=== PATIENT | male | born 1970 | race Caucasian/White ===

== ENCOUNTER 2025-01-08 05:35 | Emergency (ER) | payer BC, OTHER, SELFPAY ==
--- OUTSIDE RECORDS SUMMARY | 2023-04-25 18:00 | XMS_ITS | Continuity of Care Document ---
Author Organization [facility] Address [address] [place] [address] Phone Care Team Providers Care Art Dealer Name Role Phone Gregg ROMERO MD, Dom Unavailable Unavailabl e Procedures Procedure Date LESION REMOVAL COLONOSCOPY Advance Directives Directive Yes / No Effective Date File Name No Information Encounters Encounter Description Practice Location Reason(s) For Visit Diagnoses Date Provider Providers Copied on Encounter [facility] , [address] [place] [address], [id number], [place] tel:[phone] [facility] No Information Gregg ROMERO Dom. [address], [address], [place], [id number] , [place]. tel:[phone] Referring Provider: Az Enamorado, [address], [place], [address]. tel:[phone] Family History Family Member Type Diagnosis Age At Onset No Information Payers Payer name Insurance type Covered democrat ID Authoriza tion(s) Stendal Cross [facility] Out of State [id number] [facility] [id number] Social History Type Description Quantity Date Captured Comments Sex Male Smoking Status No Information Chief Complaint And Reason For Visit No Information Reason For Referral Reason For Referral No Information History Of Present Illness Encounter Date Complaint History Of Prese nt Illness No Information Functional Status Date Functional Assessmen t No Information Instructions Date Instruction Additional Infor mation No Information Assessments Type Assessment Date No Information Patient Care Teams Name Effective Dates (start - stop) Status Members No Information
--- OUTSIDE RECORDS SUMMARY | 2025-01-08 05:39 | XMS_ITS | Clinical Summary ---
Author Organization [facility] Address [address] [place] [address] Care Team Providers Care Lithoplate Maker Name Role Phone Az Enamorado MD Primary Care Provider [phone] Allergies Active Allergy Reactions Criticality Noted Date Comments Penicillin G Medications ePINEPHrine (EPIPEN 2-MICHELLE) 0.3 mg/0.3 mL (1:1,000) injectionIndicat ions:Allergy to bee sting Inject 0.3 mLs into the muscle as needed for Anaphylaxis . 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 Actinic keratosis 09/14/2012 Peptic Esophagitis 03/14/2008 Overview (12/27/2010): Social History Tobacco Use Types Packs/Day Years Used Date Smoking Tobacco: Never Alcohol Use Standard Drinks/Week Comments Not Asked 0 (1 standard drink = 0.6 oz pur e alcohol) Sex and Gender Information Value Date Recorded Sex Assigned at Male 09/28/2022 12:56 PDT Legal Sex Male 12:30 PDT Gender Identity Male 09/28/2022 12:56 PDT Sexual Orientation Straight 09/28/2022 12 :56 PDT Last Filed Vital Signs Vital Sign Reading Time Taken Comments Blood Pressure 106/74 09/13/2012 1704 PDT Pulse 74 02/02/2011 1602 PST Temperature 36.8 C (98.2 F) 09/13/2012 1704 PDT Respiratory Rate 18 02/02/2011 1602 PST Oxygen Saturation - - Inhaled Oxygen Concentration - - Weight 112 kg (247 lb) 09/13/2012 1704 PDT Height 182.9 cm (6') 09/13/2012 1704 PDT Body Mass Index 33.5 09/13/2012 1704 PDT Plan of Treatment Health Maintenance Due Date Last Done Comments HIV Screening 1970 Varicella Vaccines (1 of 2 - 13+ 2-dose series) 1981 DTaP/Tdap/Td Vaccines (1 - Tdap) 06/07/1987 Hepatitis B Vaccines (1 of 3 - 19+ 3-dose series) 06/07/1987 COLOGUARD 2013 FOBT/FOBI 2013 SIGMOIDOSCOPY 2013 Pneumococcal Vaccines: 50+ Y ears (1 of 1 - PCV) 2018 Zoster Vaccines (Shingrix) 5 0+ (1 of 2) 2018 COVID-19 Vaccine (4 - 2024- season) 2024 12/11/2020, 05/09/2020, 04/11/2020 Influenza Vaccine (#1) 2024 12/28/2018 COLONOSCOPY 04/25/2028 04/26/2023, 04/26/2023 Colorectal Cancer Screening 04/25/2028 Procedures Procedure Name Priority Date/Time Associated Diagnosis Comments COLONOSCOPY Routine 04/26/2023 Special screening for malignant neoplasms, colon from Last 3 Months or Most Recently Relevant to Health Maintenance Results * Colonoscopy (04/26/2023) Dom Escobedo MD PROCEDURE/MINOR SURGICAL ORDER HAILEY Final Result from Last 3 Months or Most Recently Relevant to Health Maintenance Insurance [facility] BLUE CROSS BLUE [facility] Care Teams Lithoplate Maker Relationship Specialty Start Date End Date Az Enamorado MD [address] [address] PCP - General Internal Medicine 02/23/23
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
--- OUTSIDE RECORDS SUMMARY | 2025-01-08 05:39 | XMS_ITS | Clinical Summary ---
Author Organization [facility] Address [address] [place] [address] Care Team Providers Care Chemistry Department Chair Name Role Phone Unavailable Primary Care Provider Unavailabl e Social History Tobacco Use Types Packs/Day Years Used Date Smoking Tobacco: Never Assessed Sex and Gender Information Value Date Recorded Sex Assigned at Not on file Legal Sex Male 8:54 AM EST Gender Identity Not on file Sexual Orientation Not on file Plan of Treatment Health Maintenance Due Date Last Done Comments DTaP,Tdap,and Td Vaccines (1 - Tdap) 06/07/1987 Hepatitis B Vaccines (1 of 3 - 19+ 3-dose series) 06/07/1987 Pneumococcal Vaccine: 50+ Ye ars (1 of 1 - PCV) 2018 Zoster Vaccines (1 of 2) 2018 Depression Screening 02/16/2024 COVID-19 Vaccine (1 - 2024-2 6 season) 2024 Influenza Vaccine (#1) 2024 RSV Immunization Adult Patie nts (1 - 1-dose 75+ series) 06/07/2043 HIB Vaccines Aged Out No longer eligi ble based on patient's age to complete this topic HPV Vaccines Aged Out No longer eligi ble based on patient's age to complete this topic Hepatitis A Vaccines Aged Out No long er eligible based on patient's age to complete this topic IPV Vaccines Aged Out No longer eligi ble based on patient's age to complete this topic MMR Vaccines Aged Out No longer eligi ble based on patient's age to complete this topic Meningococcal ACWY Vaccine Aged Out N o longer eligible based on patient's age to complete this topic Meningococcal B Vaccine Aged Out No l onger eligible based on patient's age to complete this topic RSV Immunization Patients Un hazel 20 months Aged Out No longer eligible b ased on patient's age to complete this topic Varicella Vaccines Aged Out No longer eligible based on patient's age to complete this topic
[2025-01-08 05:52] VITALS: BP 146/94; PULSE 67; RESP 17; TEMP 36.6; O2SAT 97
--- NOTE | 2025-01-08 06:02 | ED_ITS ---
HPI - Eye Problem General: Chief complaint: Eye Problems Stated complaint: RT eye pain Time Seen by Provider: 01/08/25 05:56 History of Present Illness: 54-year-old man who is here from [facility] and has been having right eye pain for several days now who presents emergency room with continued right eye pain. He was seen in urgent care and had a fluorescein/UV exam which revealed nothing. He was placed on erythromycin and he says this is not helping. His eye continues to hurt. No vision changes. No periocular swelling. No pain with eye movement. Related Data Previous Rx's ?Medication ?Instructions ?Recorded polymyxin B sulfate 10,000 1 drp ophthalmic (eye) Q3H 7 days 01/08/25 unit-trimethoprim 1 mg/mL eye drops #10 mL Review of Systems Narrative: Constitutional symptoms: Negative except as documented in HPI. Skin symptoms: Negative except as documented in HPI. Eye symptoms: Negative except as documented in HPI. ENMT symptoms: Negative except as documented in HPI. Respiratory symptoms: Negative except as documented in HPI. Cardiovascular symptoms: Negative except as documented in HPI. Gastrointestinal symptoms: Negative except as documented in HPI. Genitourinary symptoms: Negative except as documented in HPI. Musculoskeletal symptoms: Negative except as documented in HPI. Neurologic symptoms: Negative except as documented in HPI. Psychiatric symptoms: Negative except as documented in HPI. Endocrine symptoms: Negative except as documented in HPI. Physical Exam Narrative: EXAM NARRATIVE: General: Alert, no acute distress. Skin: warm and dry Head: Normocephalic Neck: Trachea midline Eye: Extraocular movements are intact. Grossly normal vision. Scleral erythema Ears, nose, mouth and throat: Oral mucosa moist Respiratory: Respirations are non-labored Musculoskeletal: Normal ROM Gastrointestinal: Abdomen does not appear distended Neurological: Alert and oriented, No focal neurological deficit observed. Psychiatric: Cooperative, appropriate mood & affect. Course Vital Signs: Vital signs: Vital Signs Temperature 97.9 F 01/08/25 05:52 Pulse Rate 67 01/08/25 05:52 Respiratory Rate 17 01/08/25 05:52 Blood Pressure 146/94 01/08/25 05:52 Pulse Oximetry 97 01/08/25 05:52 Oxygen Delivery Me thod Room Air 01/08/25 05:52 MDM - Eye Problem Medical Decision Making Medical decision making Patient's reason for coming to the emergency room: Eye pain Social determinants: [place] I reviewed the patient's medical record. No previous visits to this institution. Alternate historians: None Differential diagnosis: including but not limited to and based on the above HPI, review of systems and physical exam: Conjunctivitis versus foreign body. Orders placed to evaluate differential diagnosis based on the above differential, HPI and physical exam Procedure: UV fluorescein examination of the eye tetracaine applied to the affected eye. once significant analgesia occurred fluorescein dye was applied to the eye Examination with kuo lamp reveals a small corneal abrasion about 5:00 over the iris. No foreign bodies. Saline irrigation. Assessment and plan: Corneal abrasion - Discharged home - Discussed plan with patient. Answered any questions. - Evaluation and treatment of this problem were appropriate in the emergency setting. No radiology studies performed this visit Discharge Plan Discharge Patient Disposition: Home Clinical Impression: Corneal abrasion Condition: Stable Prescriptions: New polymyxin B sulf-trimethoprim 10,000 unit- 1 mg/mL drops 1 drp ophthalmic (eye) Q3H 7 Days Qty: 10 0RF Rx Instructions: while awake; do not exceed 6 doses in 24 hours Discharge Orders: Discharge ED (Routine); Ordered 01/08/25 Ordered By: Brea Ray Discharge Diet: Usual diet Discharge Activity: Increase activity as tolerated Patient Instructions: Corneal Abrasion (ED), Opioid Safety, Pain Management, Patient Portal & Sajan Instructions Activity Restrictions/Additional Instructions: Thank you for choosing [facility] for your healthcare needs today. You have been screened and evaluated and felt safe for discharge. Health conditions do change or evolve sometimes and as such it is important that you follow up with your Primary Doctor to be re checked, 3-5 days is a general good time frame for follow up. You are always welcome to return to the ED for re assessment if your symptoms are worsening or you have new concerns Print Language: Djiboutian Coding Level of Care Code ED Half Section Ironer for Shawna Fuentes
[2025-01-08] MEDS: tetracaine 0.5% Op Soln 4 mL Btl 1 DROP EYE-LEFT (06:07)
[2025-01-08 06:22] VITALS: PULSE 61; O2SAT 99
== END 2025-01-08 06:23 | disposition home or self-care (01) ==
PROVIDERS: Emergency Provider Emergency Medicine
DX: S05.01XA Injury of conjunctiva and corneal abrasion without foreign body, right eye, initial encounter (principal); X58.XXXA Exposure to other specified factors, initial encounter
CPT/HCPCS: 99283; J9999